=== PATIENT | female | born 1985 | race Hispanic/Latino ===

== ENCOUNTER 2022-08-21 16:18 | Emergency (ER) | payer OTHER, SELFPAY ==
[2022-08-21] VITALS (11 sets, daily range): BP systolic 94–119; BP diastolic 56–69; PULSE 96–110; RESP 20; TEMP 37.3; O2SAT 95–98; BMI 32.2
--- NOTE | 2022-08-21 16:43 | ED.FEMALEGU ---
HPI - Female Genitourinary <DO Tracey Orozco Last Filed: 08/22/22 07:31> General Chief complaint: Urogenital-Female Stated complaint: fever, flank pain, hx of kidney stones Time Seen by Provider: 08/21/22 16:43 Source: patient Mode of arrival: Ambulatory History of Present Illness HPI Narrative: 37-year-old female nonsmoker with history of kidney stones presents with a few friends and family members in the chief complaint of sudden onset right flank pain with radiation around her right side. She states that it feels similar to prior kidney stones. It started a few days ago. She states that she always has some baseline pain but does have episodes where it gets quite intense without any obvious provocation or palliation. She has had nausea but denies vomiting. She denies any fever or chills. She denies runny nose, sore throat or cough. She denies any abdominal pain, vaginal bleeding or discharge. She states that there is no chance she is as her tubes are tied and so are her 's Related Data Previous Rx's Medication Instructions Recorded sulfamethoxazole 400 1 tab PO BID 14 days #28 tabs 08/21/22 mg-trimethoprim 80 mg tablet (Bactrim) Allergies Allergy/AdvReac Type Severity Reaction Status Date / Time hydrocodone Allergy ITCHING Verified 08/21/22 16:29 Review of Systems <DO Tracey Orozco Last Filed: 08/22/22 07:31> Review of Systems Narrative: GENERAL: Denies chills, fatigue, malaise, fever, sweats. HEENT: Denies sinus pain, ear pain, sore throat, difficulty swallowing, dizziness. RESPIRATORY: Denies dyspnea, cough, wheezing, hemoptysis, sputum. CARDIOVASCULAR: Denies chest pain, palpitations, orthopnea, edema, GASTROINTESTINAL: Denies nausea, vomiting, abdominal pain, diarrhea, constipation, melena. : See HPI MUSCULOSKELETAL: denies weakness, joint pain, or bony pain SKIN: Denies rash, skin lesions, or other NEUROLOGIC: Denies weakness, headache, numbness, change in speech, confusion, seizures, incoordination. PSYCHIATRIC: No concerning psychosocial issues. 12 point review of systems is negative except for those stated above Patient History <DO Tracey Orozco Last Filed: 08/22/22 07:31> Last Alcoholic Drink: does not use Substance Use Type: does not use Exam <Chato García DO - Last Filed: 08/22/22 07:31> Narrative Exam Narrative: GENERAL: [37] year old patient appears stated age. Well-developed patient, in mild distress. HEAD: Atraumatic. Normocephalic. EYES: Pupils equal round and reactive. Extraocular motions intact. No scleral icterus. No injection or drainage. ENT: Nose without bleeding, purulent drainage. Throat without erythema, tonsillar hypertrophy or exudate. Airway patent. NECK: Trachea midline. Non tender CARDIOVASCULAR: Regular rate and rhythm without murmurs, gallops, or rubs. RESPIRATORY: Clear to auscultation. Breath sounds equal bilaterally. No wheezes, rales, or rhonchi. GASTROINTESTINAL: Abdomen soft, non-tender, nondistended. EXTREMITIES: No edema or joint tenderness. BACK: Nontender without deformity or crepitance. No flank tenderness. NEURO: AOx3. SKIN: No rash or erythema of visible areas Initial Vital Signs Initial Vital Signs: Vital Signs Temperature 99.1 F 08/21/22 16:29 Pulse Rate 110 H 08/21/22 16:29 Respiratory Rate 20 08/21/22 16:29 Blood Pressure 119/69 08/21/22 16:29 Pulse Oximetry 98 08/21/22 16:29 Oxygen Delivery Method 08/21/22 16:29 <Dat Ngo DO - Last Filed: 08/22/22 02:25> Initial Vital Signs Initial Vital Signs: Vital Signs Temperature 99.1 F 08/21/22 16:29 Pulse Rate 110 H 08/21/22 16:29 Respiratory Rate 20 08/21/22 16:29 Blood Pressure 119/69 08/21/22 16:29 Pulse Oximetry 98 08/21/22 16:29 Oxygen Delivery Method 08/21/22 16:29 Course <Chato García DO - Last Filed: 08/22/22 07:31> Orders Ordered: Discontinued Medications Sodium Chloride (Normal Saline 0.9%) 1,000 mls @ 1,000 mls/hr IV BOLUS ONE Stop: 08/21/22 17:43 Last Infusion: 08/21/22 18:41 Dose: 0 mls/hr Documented By: Admin: 08/21/22 17:33 Dose: 1,000 mls/hr Documented By: RB Lidocaine HCl 6 ml/ Sodium (Chloride) 56 mls @ 336 mls/hr IV NOW ONE Stop: 08/21/22 17:18 Last Infusion: 08/21/22 18:02 Dose: 0 mls/hr Documented By: Admin: 08/21/22 17:49 Dose: 336 mls/hr Documented By: RB Ceftriaxone Sodium 2,000 mg/ (Sodium Chloride) 100 mls @ 200 mls/hr IV NOW ONE Stop: 08/21/22 18:06 Last Infusion: 08/21/22 19:35 Dose: 0 mls/hr Documented By: Admin: 08/21/22 18:53 Dose: 200 mls/hr Documented By: RB Ketorolac Tromethamine (Ketorolac 30 Mg/Ml Vial) 15 mg IV NOW ONE Stop: 08/21/22 17:18 Last Admin: 08/21/22 17:34 Dose: 15 mg Documented By: RB Vital Signs Vital signs: Vital Signs - 8 hr 08/21/22 19:56 08/21/22 18:58 08/21/22 18:59 Pulse Rate 96 H 106 H 105 H Blood Pressure Pulse Oximetry 95 96 08/21/22 18:59 08/21/22 19:00 08/21/22 19:00 Pulse Rate 105 H Blood Pressure 100/62 100/62 Pulse Oximetry 96 08/21/22 19:30 08/21/22 19:31 08/21/22 19:31 Pulse Rate 104 H Blood Pressure 94/60 Pulse Oximetry 96 97 <Dat Ngo DO - Last Filed: 08/22/22 02:25> Orders Ordered: Discontinued Medications Sodium Chloride (Normal Saline 0.9%) 1,000 mls @ 1,000 mls/hr IV BOLUS ONE Stop: 08/21/22 17:43 Last Infusion: 08/21/22 18:41 Dose: 0 mls/hr Documented By: Admin: 08/21/22 17:33 Dose: 1,000 mls/hr Documented By: RB Lidocaine HCl 6 ml/ Sodium (Chloride) 56 mls @ 336 mls/hr IV NOW ONE Stop: 08/21/22 17:18 Last Infusion: 08/21/22 18:02 Dose: 0 mls/hr Documented By: Admin: 08/21/22 17:49 Dose: 336 mls/hr Documented By: RB Ceftriaxone Sodium 2,000 mg/ (Sodium Chloride) 100 mls @ 200 mls/hr IV NOW ONE Stop: 08/21/22 18:06 Last Infusion: 08/21/22 19:35 Dose: 0 mls/hr Documented By: Admin: 08/21/22 18:53 Dose: 200 mls/hr Documented By: RB Ketorolac Tromethamine (Ketorolac 30 Mg/Ml Vial) 15 mg IV NOW ONE Stop: 08/21/22 17:18 Last Admin: 08/21/22 17:34 Dose: 15 mg Documented By: RB Vital Signs Vital signs: Vital Signs - 8 hr 08/21/22 19:56 08/21/22 18:58 08/21/22 18:59 Pulse Rate 96 H 106 H 105 H Blood Pressure Pulse Oximetry 95 96 08/21/22 18:59 08/21/22 19:00 08/21/22 19:00 Pulse Rate 105 H Blood Pressure 100/62 100/62 Pulse Oximetry 96 08/21/22 19:30 08/21/22 19:31 08/21/22 19:31 Pulse Rate 104 H Blood Pressure 94/60 Pulse Oximetry 96 97 MDM - Female Genitourinary <Chato García DO - Last Filed: 08/22/22 07:31> Lab Data 08/21/22 16:51 08/21/22 16:51 Labs: Lab Results 08/21/22 08/21/22 08/21/22 Range/Units 16:35 16:35 16:51 WBC 11.1 H (4.5-11.0) X10^3/uL RBC 4.49 (4.0-5.2) X10^6/uL Hgb 12.8 (12.0-16.0) g/dL Hct 36.8 (36-46) % MCV 81.9 (80-100) fL MCH 28.5 (26-34) PG MCHC 34.8 (30-36) % RDW 12.8 (11.6-14.8) % Plt Count 206 (150-400) X10^3/uL Neut % (Auto) 72.2 (50-75) % Lymph % (Auto) 20.2 L (25-40) % Benson % (Auto) 6.6 (3-14) % Eos % (Auto) 0.3 L (2-4) % Baso % (Auto) 0.7 (0-2) % Neut # (Auto) 8000 H (1255-6180) /uL Lymph # (Auto) 2200 (6906-6799) /uL Benson # (Auto) 700 (0-900) /uL Eos # (Auto) 0 (0-450) /uL Baso # (Auto) 100 (0-100) /uL Sodium (137-145) mmol/L Potassium (3.4-5.1) mmol/L Chloride (98-107) mmol/L Carbon Dioxide (22-32) mmol/L BUN (7-17) mg/dL Creatinine (0.52-1.04) mg/dL Estimated GFR (>60) mL/min BUN/Creatinine Ratio (6-22) Glucose (70-100) mg/dL Calcium (8.4-10.2) mg/dL Total Bilirubin (0.2-1.3) mg/dL AST (14-36) IU/L ALT (<35) IU/L Alkaline Phosphatase (38-126) U/L Total Protein (6.3-8.2) g/dL Albumin (3.5-5.0) g/dL Globulin (1.7-4.1) g/dL Albumin/Globulin Ratio (1.0-2.8) Urine RBC 1-5/hpf (0-5/HPF) Urine WBC 5-10/hpf H (0-5/HPF) Ur Squamous Epith Cells 5-10 /hpf H (0-5/HPF) Amorphous Sediment 1+ Urine Bacteria Few (2-10) H (None) Urine Mucus 1+ H (Negative) Ur Culture Indicated? Specimen cultured Urine Test Negative (Negative) 08/21/22 Range/Units 16:51 WBC (4.5-11.0) X10^3/uL RBC (4.0-5.2) X10^6/uL Hgb (12.0-16.0) g/dL Hct (36-46) % MCV (80-100) fL MCH (26-34) PG MCHC (30-36) % RDW (11.6-14.8) % Plt Count (150-400) X10^3/uL Neut % (Auto) (50-75) % Lymph % (Auto) (25-40) % Benson % (Auto) (3-14) % Eos % (Auto) (2-4) % Baso % (Auto) (0-2) % Neut # (Auto) (9963-6889) /uL Lymph # (Auto) (0119-5088) /uL Benson # (Auto) (0-900) /uL Eos # (Auto) (0-450) /uL Baso # (Auto) (0-100) /uL Sodium 137 (137-145) mmol/L Potassium 3.5 (3.4-5.1) mmol/L Chloride 100 (98-107) mmol/L Carbon Dioxide 25 (22-32) mmol/L BUN 8 (7-17) mg/dL Creatinine 0.49 L (0.52-1.04) mg/dL Estimated GFR > 60 (>60) mL/min BUN/Creatinine Ratio 16.3 (6-22) Glucose 118 H (70-100) mg/dL Calcium 8.7 (8.4-10.2) mg/dL Total Bilirubin 1.1 (0.2-1.3) mg/dL AST 30 (14-36) IU/L ALT 37 H (<35) IU/L Alkaline Phosphatase 93 (38-126) U/L Total Protein 7.6 (6.3-8.2) g/dL Albumin 4.3 (3.5-5.0) g/dL Globulin 3.3 (1.7-4.1) g/dL Albumin/Globulin Ratio 1.3 (1.0-2.8) Urine RBC (0-5/HPF) Urine WBC (0-5/HPF) Ur Squamous Epith Cells (0-5/HPF) Amorphous Sediment Urine Bacteria (None) Urine Mucus (Negative) Ur Culture Indicated? Urine Test (Negative) Urine Dip Bedside Urine Glucose Negative Bedside Urine Bilirubin - Negative Bedside Urine Ketone - Negative Urine Specific [place] 1.015 Bedside Urine Occult Blood +++ Bedside Urine pH 6.0 Bedside Urine Protein - Negative Bedside Urine Urobilinogen - Negative Bedside Urine Nitrite - Negative Bedside Urine Leukocytes - Negative Esterase MDM Narrative Medical decision making narrative: CC: 37-year-old female with right flank pain that is colicky in nature and wraps around her right side Complicating co-morbidities: History of prior stones Data collected from: Patient is Medical records reviewed: No prior notes available Differential considered, but not limited to: Kidney stone, pyelonephritis versus other Exam documented above, pertinent findings include: Obviously uncomfortable, initially difficult to find position of comfort but then improved, minimal if any flank tenderness that is reproducible Lab Test results independently reviewed as above. Pertinent findings: Urine with blood, suggestion of UTI, no renal failure Imaging studies independently reviewed: no obvious stone, mild hydro Treatments: toradol, saline, Rocephin, lido drip Re-evaluations: significant improvement Discussion: Disposition: see below, along with detailed discharge instructions that have been reviewed with patient as well as indications for ED re-evaluation and additional outpatient follow up Dr ngo: Received turned over. Reviewed patient's history and physical exam. The CT scan does not show any signs of stone either in the kidney or the ureter or the bladder. She could potentially have passed the stone. She is having dysuria and frequency. Her urinalysis is somewhat concerning for urinary tract infection. Her symptoms today could also be because of a ascending infection. She states she feels much better after the fluids and the antibiotics. She is tolerating oral intake. Plan to be is to discharge home with a prescription for antibiotics and treatment of pyelonephritis. She was informed of the CT scan findings. She was given strict return precautions. She expressed understanding and agreement. <Dat Ngo, DO - Last Filed: 08/22/22 02:25> Lab Data Labs: Lab Results 08/21/22 08/21/22 08/21/22 Range/Units 16:35 16:35 16:51 WBC 11.1 H (4.5-11.0) X10^3/uL RBC 4.49 (4.0-5.2) X10^6/uL Hgb 12.8 (12.0-16.0) g/dL Hct 36.8 (36-46) % MCV 81.9 (80-100) fL MCH 28.5 (26-34) PG MCHC 34.8 (30-36) % RDW 12.8 (11.6-14.8) % Plt Count 206 (150-400) X10^3/uL Neut % (Auto) 72.2 (50-75) % Lymph % (Auto) 20.2 L (25-40) % Benson % (Auto) 6.6 (3-14) % Eos % (Auto) 0.3 L (2-4) % Baso % (Auto) 0.7 (0-2) % Neut # (Auto) 8000 H (3066-7573) /uL Lymph # (Auto) 2200 (6182-4287) /uL Benson # (Auto) 700 (0-900) /uL Eos # (Auto) 0 (0-450) /uL Baso # (Auto) 100 (0-100) /uL Sodium (137-145) mmol/L Potassium (3.4-5.1) mmol/L Chloride (98-107) mmol/L Carbon Dioxide (22-32) mmol/L BUN (7-17) mg/dL Creatinine (0.52-1.04) mg/dL Estimated GFR (>60) mL/min BUN/Creatinine Ratio (6-22) Glucose (70-100) mg/dL Calcium (8.4-10.2) mg/dL Total Bilirubin (0.2-1.3) mg/dL AST (14-36) IU/L ALT (<35) IU/L Alkaline Phosphatase (38-126) U/L Total Protein (6.3-8.2) g/dL Albumin (3.5-5.0) g/dL Globulin (1.7-4.1) g/dL Albumin/Globulin Ratio (1.0-2.8) Urine RBC 1-5/hpf (0-5/HPF) Urine WBC 5-10/hpf H (0-5/HPF) Ur Squamous Epith Cells 5-10 /hpf H (0-5/HPF) Amorphous Sediment 1+ Urine Bacteria Few (2-10) H (None) Urine Mucus 1+ H (Negative) Ur Culture Indicated? Specimen cultured Urine Test Negative (Negative) 08/21/22 Range/Units 16:51 WBC (4.5-11.0) X10^3/uL RBC (4.0-5.2) X10^6/uL Hgb (12.0-16.0) g/dL Hct (36-46) % MCV (80-100) fL MCH (26-34) PG MCHC (30-36) % RDW (11.6-14.8) % Plt Count (150-400) X10^3/uL Neut % (Auto) (50-75) % Lymph % (Auto) (25-40) % Benson % (Auto) (3-14) % Eos % (Auto) (2-4) % Baso % (Auto) (0-2) % Neut # (Auto) (9426-6863) /uL Lymph # (Auto) (3509-8229) /uL Benson # (Auto) (0-900) /uL Eos # (Auto) (0-450) /uL Baso # (Auto) (0-100) /uL Sodium 137 (137-145) mmol/L Potassium 3.5 (3.4-5.1) mmol/L Chloride 100 (98-107) mmol/L Carbon Dioxide 25 (22-32) mmol/L BUN 8 (7-17) mg/dL Creatinine 0.49 L (0.52-1.04) mg/dL Estimated GFR > 60 (>60) mL/min BUN/Creatinine Ratio 16.3 (6-22) Glucose 118 H (70-100) mg/dL Calcium 8.7 (8.4-10.2) mg/dL Total Bilirubin 1.1 (0.2-1.3) mg/dL AST 30 (14-36) IU/L ALT 37 H (<35) IU/L Alkaline Phosphatase 93 (38-126) U/L Total Protein 7.6 (6.3-8.2) g/dL Albumin 4.3 (3.5-5.0) g/dL Globulin 3.3 (1.7-4.1) g/dL Albumin/Globulin Ratio 1.3 (1.0-2.8) Urine RBC (0-5/HPF) Urine WBC (0-5/HPF) Ur Squamous Epith Cells (0-5/HPF) Amorphous Sediment Urine Bacteria (None) Urine Mucus (Negative) Ur Culture Indicated? Urine Test (Negative) Urine Dip Bedside Urine Glucose Negative Bedside Urine Bilirubin - Negative Bedside Urine Ketone - Negative Urine Specific [place] 1.015 Bedside Urine Occult Blood +++ Bedside Urine pH 6.0 Bedside Urine Protein - Negative Bedside Urine Urobilinogen - Negative Bedside Urine Nitrite - Negative Bedside Urine Leukocytes - Negative Esterase Imaging Data CT scan - abdomen/pelvis: Radiologist's Impression: Right-sided hydroureter and hydronephrosis without signs of stone. MDM Narrative Medical decision making narrative: CC: 37-year-old female with right flank pain that is colicky in nature and wraps around her right side Complicating co-morbidities: History of prior stones Data collected from: Patient is Medical records reviewed: No prior notes available Differential considered, but not limited to: Kidney stone, pyelonephritis versus other Exam documented above, pertinent findings include: Obviously uncomfortable, initially difficult to find position of comfort but then improved, minimal if any flank tenderness that is reproducible Lab Test results independently reviewed as above. Pertinent findings: Urine with blood, no evidence of infection Independently reviewed EKG as above Imaging studies independently reviewed: Scores Used: MIPS Elements: Consultations: Treatments: Re-evaluations: Discussion: Disposition: see below, along with detailed discharge instructions that have been reviewed with patient as well as indications for ED re-evaluation and additional outpatient follow up Dr ngo: Received turned over. Reviewed patient's history and physical exam. The CT scan does not show any signs of stone either in the kidney or the ureter or the bladder. She could potentially have passed the stone. She is having dysuria and frequency. Her urinalysis is somewhat concerning for urinary tract infection. Her symptoms today could also be because of a ascending infection. She states she feels much better after the fluids and the antibiotics. She is tolerating oral intake. Plan to be is to discharge home with a prescription for antibiotics and treatment of pyelonephritis. She was informed of the CT scan findings. She was given strict return precautions. She expressed understanding and agreement. Discharge Plan Departure Patient Disposition: Home Clinical Impression: Pyelonephritis Instructions: DI for Kidney Infection Activity Restrictions/Additional Instructions: [facility] [place]. Please pick them up tomorrow and start taking it as directed. Be Sure that you are increasing your fluid intake. Contact your primary doctor for follow-up. Return to the emergency department for any new or worsening symptoms. Prescriptions: New sulfamethoxazole-trimethoprim [Bactrim] 400-80 mg tablet 1 tab PO BID 14 Days Qty: 28 0RF Stand Alone Forms: Patient Portal/API
[2022-08-21 17:05] LABS: Add Manual Diff / Slide Review NO; Basophils Absolute Auto 100 /uL (0-100); Basophils Percent Auto 0.7 % (0-2); Eosinophils Absolute Auto 0 /uL (0-450); Eosinophils Percent Auto 0.3 % (2-4); Hematocrit 36.8 % (36-46); Hemoglobin 12.8 g/dL (12.0-16.0); Lymphocytes Absolute Auto 2200 /uL (1100-4500); Lymphocytes Percent Auto 20.2 % (25-40); Mean Corpuscular HGB Conc 34.8 % (30-36); Mean Corpuscular Hemoglobin 28.5 PG (26-34); Mean Corpuscular Volume 81.9 fL (80-100); Monocytes Absolute Auto 700 /uL (0-900); Monocytes Percent Auto 6.6 % (3-14); Neutrophils Absolute Auto 8000 /uL (1500-7000); Neutrophils Percent Auto 72.2 % (50-75); Platelet Count 206 X10^3/uL (150-400); Red Blood Cell Count 4.49 X10^6/uL (4.0-5.2); Red Cell Distribution Width 12.8 % (11.6-14.8); White Blood Cell Count 11.1 X10^3/uL (4.5-11.0)
[2022-08-21 17:17] LABS: Alanine Aminotransferase 37 IU/L (<35); Albumin 4.3 g/dL (3.5-5.0); Albumin Globulin Ratio 1.3 (1.0-2.8); Alkaline Phosphatase 93 U/L (38-126); Aspartate Aminotransferase 30 IU/L (14-36); BUN Creatinine Ratio 16.3 (6-22); Bilirubin Total 1.1 mg/dL (0.2-1.3); Blood Urea Nitrogen 8 mg/dL (7-17); Calcium 8.7 mg/dL (8.4-10.2); Carbon Dioxide 25 mmol/L (22-32); Chloride 100 mmol/L (98-107); Estimated Glomerular Filt Rate > 60 mL/min (>60); Globulin 3.3 g/dL (1.7-4.1); Glucose 118 mg/dL (70-100); HEMOLYSIS < 15 (0-50); Potassium 3.5 mmol/L (3.4-5.1); Sodium 137 mmol/L (137-145); Total Protein 7.6 g/dL (6.3-8.2)
[2022-08-21 17:27] LABS: Pregnancy Test Urine Negative (Negative)
[2022-08-21] MEDS: SODIUM CHLORIDE 0.9% 1,000 ML 1000 ML IV (17:33)
[2022-08-21] MEDS: KETOROLAC 30 MG/ML VIAL 15 MG IV (17:34)
[2022-08-21 17:38] LABS: Amorphous Sediment Urine 1+; Bacteria Urine Few (2-10); Culture Indicated Urine Specimen Cultured; Mucus Urine 1+ (Negative); RBC Urine 1-5/HPF (0-5/HPF); Squamous Epithelial Cell Urine 5-10 /HPF (0-5/HPF); WBC Urine 5-10/HPF (0-5/HPF)
[2022-08-21] MEDS: LIDOCAINE 2% (PF) 6 ML in SODIUM CHLORIDE 0.9% 50 ML 336 ML IV (17:49)
--- NOTE | 2022-08-21 18:13 | DI.CT.S_ITS ---
PROCEDURE: CT KIDNEY URETER BLADDER (KUB) INDICATIONS: flank pain, abnormal urine TECHNIQUE: Axial sections were acquired from the lung bases to the pubic symphysis. Coronal and sagittal reformats were performed. For radiation dose reduction, the following was used: automated exposure control, adjustment of mA and/or kV according to patient size. COMPARISON: None. FINDINGS: Lower thorax: The lung bases are clear. Heart size normal. No hiatal hernia. Liver: The liver is diffusely decreased in attenuation without focal mass lesion. Biliary system: Cholecystectomy. No intra or extrahepatic bile duct dilation. Pancreas: Unremarkable without mass or inflammation evident. Spleen: Normal in size and density. Adrenals: Normal morphology and density. Reproductive system: Unremarkable as visualized. Urinary system: Mild right hydronephrosis and hydroureter without calcified obstructing lesion. No renal calculi bilaterally. No left-sided hydronephrosis. Gastrointestinal system: The bowel is unremarkable without evidence of bowel obstruction or inflammation. The stomach appears unremarkable. Appendix: No findings to suggest acute appendicitis. Peritoneal spaces: No mesenteric or retroperitoneal adenopathy. No free air. No free fluid. Vasculature: The IVC, aorta and iliac vasculature are unremarkable. Abdominal wall: Abdominal wall intact without evidence of ventral or inguinal hernias. Musculoskeletal: Normal bone mineralization. No acute fractures. IMPRESSION: 1. Mild right hydronephrosis and hydroureter without calcified obstructing lesion. Differential possibilities include recently passed stone and non radiopaque stone. No left hydronephrosis. 2. Hepatic fatty infiltration without focal mass lesion Approved by: Bandar Smyth M.D. on 08/21/2022 at 17:45
[2022-08-21] MEDS: cefTRIAXone 2,000 MG in SODIUM CHLORIDE 0.9% 100 ML 200 MG IV (18:53)
== END 2022-08-21 20:10 | disposition home or self-care (01) ==
PROVIDERS: Emergency Medicine; Emergency Provider Emergency Medicine
DX: N12 Tubulo-interstitial nephritis, not specified as acute or chronic (principal); Z87.442 Personal history of urinary calculi
CPT/HCPCS: 36415; 74176; 80053; 81003; 81015; 81025; 85025; 87040; 87086; 96361; 96365; 96375; 99284; J0696; J1885